=== PATIENT | female | born 1975 | race Caucasian/White ===

== ENCOUNTER 2021-02-21 01:06 | Emergency (ER) | payer SELFPAY ==
[~2021-02-21] VITALS: Ht 160 cm; Wt 104.7 kg
--- NOTE | 2021-02-21 02:51 | NUR ---
AMBULATORY WITH STEADY GAIT FROM LOBBY TO ED ROOM 15
--- NOTE | 2021-02-21 03:16 | NUR ---
labs drawn and pt to us at this time
[2021-02-21 03:27] LABS: BASOPHILS % (AUTO) 1 % (0-1); EOSINOPHILS % (AUTO) 0 % (1-7); LYMPHOCYTES % (AUTO) 26 % (22-44); MEAN CORPUSCULAR HEMOGLOBIN 29.2 pg (27.0-34.8); MEAN CORPUSCULAR HGB CONC 33.5 g/dL (32.4-35.8); MEAN PLATELET VOLUME 7.2 fL (7.4-10.4); MONOCYTES % (AUTO) 9 % (2-9); NEUTROPHILS % (AUTO) 64 % (42-75); PLATELET COUNT 325 x10^3/uL (130-400); RED BLOOD COUNT 4.63 x10^6/uL (3.82-5.3); RED CELL DISTRIBUTION WIDTH 14.4 % (9.6-15.2)
[2021-02-21 03:38] LABS: ALBUMIN 3.4 g/dL (3.4-5.0); ANION GAP 6 mmol/L (5-15); CHLORIDE 107 mmol/L (98-107); CREATININE 0.94 mg/dL (0.55-1.02)
[2021-02-21 05:19] VITALS: BP 129/74
== END 2021-02-21 05:34 | disposition home or self-care (01) ==
LOC: ED 03:00
DX: N92.1 Excessive and frequent menstruation with irregular cycle (principal); N93.8 Other specified abnormal uterine and vaginal bleeding
CPT/HCPCS: 36415; 76830; 80048; 82040; 84703; 85025; 99284